=== PATIENT | female | born 1940 | race Caucasian/White ===

== ENCOUNTER 2018-05-15 13:23 | Emergency (ER) | payer OTHER ==
[2018-05-15] MEDS ORDERED: Tetan/Diph/Pertus SYR(Tdap)* 0.5 ML SYR(BOOSTRIX) use SYR IM ONE (13:24)
--- NOTE | 2018-05-15 13:24 | UC ---
Skin Complaint HPI - HPI Summary HPI Summary: 77 yo female presents with ?abrasion sustained 2 days ago to his right foot. She tells me that she was walking barefoot in the house and scraped her right heel against something metal. She is very anxious about this because she has not had a tetanus shot in a long time. She is ambulatory without assistance. - History of Current Complaint Time Seen by Provider: 05/15/18 13:24 Stated Complaint: TETANUS SHOT Hx Obtained From: Patient Onset/Duration: Sudden Onset Skin Exposure Onset/Duration: Days Ago Current Severity: None - Allergy/Home Medications Allergies/Adverse Reactions: Allergies Allergy/AdvReac Type Severity Reaction Status Date / Time No Known Allergies Allergy Verified 05/15/18 13:33 Review of Systems Constitutional: Negative Skin: Other - Abrasion right foot Respiratory: Negative Cardiovascular: Negative Neurological: Negative Psychological: Negative All Other Systems Reviewed And Are Negative: Yes PMH/Surg Hx/FS Hx/Imm Hx GI/ History: Gastroesophageal Reflux - Surgical History Surgical History: Yes Surgery Procedure, Year, and Place: TOTAL HYSTERECTOMY - Family History Known Family History: Positive: None - Social History Occupation: Retired Lives: With Family Alcohol Use: None Substance Use Type: None Smoking Status (MU): Never Smoked Tobacco Physical Exam - Summary Physical Exam Summary: GENERAL: NAD. WDWN. No pain distress. SKIN: Very superficial abrasion to right plantar aspect along callus. No puncture appreciated. No streaking, bleeding, or drainage. NECK: Supple. Nontender. No lymphadenopathy. CHEST: No accessory muscle use. Breathing comfortably and in no distress. CV: Pulses intact NEURO: Alert. CN II-XII grossly intact. PSYCH: Age appropriate behavior. Triage Information Reviewed: Yes Vital Signs: Vital Signs: Temp Pulse Resp BP Pulse Ox 98.0 F 67 18 126/69 98 05/15/18 13:31 05/15/18 13:31 05/15/18 13:31 05/15/18 13:31 05/15/18 13:31 Course/Dx - Course Course Of Treatment: Pt was offered tdap vaccine, but declined - requesting plain tetanus. We had a long discussion about this and how guidelines recommend tdap over plain tetanus unless there is a contraindication. Pt elected to hold off on tetanus and call her PCP in the morning. - Diagnoses Provider Diagnoses: Abrasion right foot Discharge - Sign-Out/Discharge Documenting (check all that apply): Patient Departure - Discharge Plan Condition: Stable Disposition: HOME Patient Education Materials: Tdap and Td Vaccines for Adults (ED) Referrals: Abby Quintero MD [Primary Care Provider] - Additional Instructions: If you develop a fever, shortness of breath, chest pain, new or worsening symptoms - please call your PCP or go to the ED. - Billing Disposition and Condition Condition: STABLE Disposition: Home
[2018-05-15 13:34] VITALS: BP 126/69
== END 2018-05-15 13:55 | disposition home or self-care (01) ==
LOC: UCEAST 13:23
DX: S90.811A Abrasion, right foot, initial encounter (principal); W22.8XXA Striking against or struck by other objects, initial encounter; Y93.01 Activity, walking, marching and hiking; Y92.009 Unspecified place in unspecified non-institutional (private) residence as the place of occurrence of the external cause; Z23 Encounter for immunization
CPT/HCPCS: 90715; 99211; G0463

== ENCOUNTER 2018-06-29 07:31 | Day surgery (SDC) | payer MEDICARE ==
[~2018-06-29 07:31] MED LIST: Acetaminophen TAB* 325 MG PO PRN; Buffered Lidocaine 0.9% SYRIN* 5 ML/SYR SYRINGE INTRADERM ONE
[2018-06-29] MEDS ORDERED: acetaZOLAMIDE TAB* 250 MG ONE (08:55)
[2018-06-29] MEDS ORDERED: Lidocaine 2% EPI 1:200000 MPF*10-20 ML VIAL ONE (08:55)
[2018-06-29] MEDS ORDERED: Neomycin/Polymy/Dex OPTH.SUSP* MAXITROL 0.1% 5 ML ONE (08:55)
[2018-06-29] MEDS ORDERED: Phenylephrine 2.5% OPTH.SOL* 2 ML BTL ONE (08:55)
[2018-06-29] MEDS ORDERED: Lidocaine 1%* 5 ML VIAL ONE (08:55)
[2018-06-29] MEDS ORDERED: Cyclopentolate 1% OPTH.SOL* 2 ML BTL ONE (08:55)
[2018-06-29] MEDS ORDERED: Ketorolac 0.5% OPHTH (NF) 0.5 % 5 ML BTL ONE (08:55)
[2018-06-29] MEDS ORDERED: Proparacaine 0.5% OPHTH.SOL* 15 ML BTL ONE (08:55)
[2018-06-29] MEDS ORDERED: Povidone Iodine 5% OPTH* 30 ML BTL ONE (08:55)
[2018-06-29] MEDS ORDERED: Midazolam* 1 MG/ML 2 ML VIAL (2 MG) ONE ×2 (09:23→10:13)
[2018-06-29 10:35] VITALS: BP 112/56
--- NOTE | 2018-06-30 03:56 | OP ---
DATE OF OPERATION: 06/29/18 - [facility] DATE OF : 44 SURGEON: Tan Crook M.D. PREOPERATIVE DIAGNOSIS: Cataract, right eye. POSTOPERATIVE DIAGNOSIS: Cataract, right eye. OPERATIVE PROCEDURE: Extracapsular cataract extraction with intraocular lens implant, right eye. DESCRIPTION OF PROCEDURE: The patient was brought to the operating room after being given 1/2% Alcaine with epinephrine drops in the preoperative area. The eye was prepped and draped in the usual sterile fashion. Sterile drape and eyelid speculum were placed. Again, topical 1/2% Alcaine with epinephrine was given. A paracentesis incision was made at the 9 o'clock position with the No.75 blade. Clear cornea incision 2.2 x 2.2-mm was created at the 12 o'clock position starting at the anterior limbus using the 2.2-mm keratome. The anterior chamber was irrigated with 0.4 mL of 1% non-preservative intracameral lidocaine and filled with DisCoVisc. A capsulorrhexis was completed using the cystotome and the Utrata forceps. Hydrodissection was performed with balanced salt solution. The lens nucleus was removed with the Phacoemulsification handpiece without incident. Cortex was removed with the irrigation-aspiration handpiece. The capsular bag was re-inflated using DisCoVisc and an [id number] implant was inserted with the shooter. The irrigation-aspiration handpiece was used to remove all residual DisCoVisc. The eye was refilled with balanced salt solution and the wound checked and found to be watertight. Topical Maxitrol drops were given. [id number]/[facility] #: [id number] MTDD
== END 2018-06-29 10:39 | disposition home or self-care (01) ==
LOC: OREAST 07:31
PROVIDERS: ATTEND Specialist
DX: H25.811 Combined forms of age-related cataract, right eye (principal); H18.51 Endothelial corneal dystrophy; H01.021 Squamous blepharitis right upper eyelid; H01.024 Squamous blepharitis left upper eyelid; H04.123 Dry eye syndrome of bilateral lacrimal glands; Z85.42 Personal history of malignant neoplasm of other parts of uterus; K21.9 Gastro-esophageal reflux disease without esophagitis; R73.03 Prediabetes
CPT/HCPCS: A9270-GY; J2250; V2632

== ENCOUNTER 2018-07-06 07:50 | Day surgery (SDC) | payer MEDICARE ==
[2018-07-06] MEDS ORDERED: Propofol* 10 MG/ML 20 ML BTL IV PUSH ONE (10:12)
[2018-07-06] MEDS ORDERED: Lidocaine 2% PF * 5 ML VIAL ONE (10:12)
[2018-07-06 10:37] VITALS: BP 115/61
[2018-07-06] MEDS ORDERED: Ketorolac 0.5% OPHTH (NF) 0.5 % 5 ML BTL ONE (15:42)
[2018-07-06] MEDS ORDERED: Proparacaine 0.5% OPHTH.SOL* 15 ML BTL ONE (15:42)
[2018-07-06] MEDS ORDERED: acetaZOLAMIDE TAB* 250 MG ONE (15:42)
[2018-07-06] MEDS ORDERED: Phenylephrine 2.5% OPTH.SOL* 2 ML BTL ONE (15:42)
[2018-07-06] MEDS ORDERED: Neomycin/Polymy/Dex OPTH.SUSP* MAXITROL 0.1% 5 ML ONE (15:42)
[2018-07-06] MEDS ORDERED: Lidocaine 2% EPI 1:200000 MPF*10-20 ML VIAL ONE (15:42)
[2018-07-06] MEDS ORDERED: Cyclopentolate 1% OPTH.SOL* 2 ML BTL ONE (15:42)
[2018-07-06] MEDS ORDERED: Povidone Iodine 5% OPTH* 30 ML BTL ONE (15:42)
[2018-07-06] MEDS ORDERED: Lidocaine 1%* 5 ML VIAL ONE (15:42)
--- NOTE | 2018-07-06 23:59 | OP ---
DATE OF OPERATION: 07/06/18 [facility] DATE OF : 44 SURGEON: Tan Crook M.D. PREOPERATIVE DIAGNOSIS: Cataract, left eye. POSTOPERATIVE DIAGNOSIS: Cataract, left eye. OPERATIVE PROCEDURE: Extracapsular cataract extraction with intraocular lens implant, left eye. DESCRIPTION OF PROCEDURE: The patient was brought to the operating room after being given 1/2% Alcaine with epinephrine drops in the preoperative area. The eye was prepped and draped in the usual sterile fashion. Sterile drape and eyelid speculum were placed. Again, topical 1/2% Alcaine with epinephrine was given. A paracentesis incision was made at the 3 o'clock position with the No.75 blade. Clear cornea incision 2.2 x 2.2-mm was created at the 6 o'clock position starting at the anterior limbus using the 2.2-mm keratome. The anterior chamber was irrigated with 0.4 mL of 1% non-preservative intracameral lidocaine and filled with DisCoVisc. A capsulorrhexis was completed using the cystotome and the Utrata forceps. Hydrodissection was performed with balanced salt solution. The lens nucleus was removed with the Phacoemulsification handpiece without incident. Cortex was removed with the irrigation-aspiration handpiece. The capsular bag was re-inflated using DisCoVisc and an [id number] implant was inserted with the shooter. The irrigation-aspiration handpiece was used to remove all residual DisCoVisc. The eye was refilled with balanced salt solution and the wound checked and found to be watertight. Topical Maxitrol drops were given. [id number]/[facility] #: [id number] [facility] [place]
== END 2018-07-06 10:51 | disposition home or self-care (01) ==
LOC: OREAST 07:50
PROVIDERS: ATTEND Specialist
DX: H25.812 Combined forms of age-related cataract, left eye (principal); H18.51 Endothelial corneal dystrophy; H01.021 Squamous blepharitis right upper eyelid; H01.024 Squamous blepharitis left upper eyelid; H04.123 Dry eye syndrome of bilateral lacrimal glands; M81.0 Age-related osteoporosis without current pathological fracture; R73.03 Prediabetes; K21.9 Gastro-esophageal reflux disease without esophagitis
CPT/HCPCS: A9270-GY; J2704; V2632